=== PATIENT | female | born 1960 | race Caucasian/White ===

== ENCOUNTER 2018-07-16 23:55 | Observation (INO) ==
[2018-07-17] MEDS ORDERED: ASPIRIN CHEW 324 MG PO STA (00:09)
[2018-07-17] MEDS ORDERED: NITROGLYCERIN SL 0.4 MG/TAB TAB SL PRN ×2 (00:09→03:59)
--- NOTE | 2018-07-17 00:17 | Emergency Department Note ---
History of Present Illness General Chief complaint: Cardiac Assessment Stated complaint: CHEST PRESSURE INTO BACK History of Present Illness Maximum Pain Intensity: 2 This 58-year-old presents to the ER complaining of chest pain that radiates to her back Location: Mid chest Quality: Pressure Severity: Moderate Duration: 2 hours ago Timing: Started 2 hours ago Context: Symptoms persisted and patient came in Modifying factors: better with nothing; worse with nothing Patient has a history of high blood pressure and cholesterol. Patient is British speaking and the son is translating per their request. Patient denies prior heart disease. Patient denies exertional chest pain, abdominal pain, leg swelling, fevers, flulike illness. No prior heart testing. Patient does not smoke. No diabetes. Home Medications Home Medications Medication Instructions Recorded Confirmed Type atenolol 50 mg PO DAILY 07/17/18 07/17/18 History chlorthalidone 12.5 mg PO DAILY 07/17/18 07/17/18 History Allergies Allergy/AdvReac Type Severity Reaction Status Date / Time cinnamon Allergy Anaphylaxis Unverified 07/17/18 02:14 Past Med/Surg History Medical History High blood pressure Hyperlipidemia Social History Preferred Language: British Feels Safe at Home: Yes Smoking Status: Never smoker Review of Systems All systems reviewed & are unremarkable except as noted in HPI & below Physical Exam Vital Signs Vital Signs - 24 hr 07/16/18 23:59 07/17/18 00:20 07/17/18 00:34 Temperature 36.8 C Temperature Source Oral Sepsis Recent Fever Within 48 Hours No Sepsis New/Unexplained Change in Mental Status No Sepsis Action Taken by Nursing No Action Required Pulse Rate 73 70 Pulse Rate [Right Finger] 73 Pulse Rhythm Regular Pulse Rhythm [Right Finger] Regular Pulse Strength [Right Finger] Normal Respiratory Rate 16 16 16 Respiratory Effort / Characteristics Non-Labored Spontaneous Non-Labored Respiratory Depth Normal Normal Respiratory Pattern Regular Blood Pressure 161/82 H Blood Pressure [Right Arm] 124/80 Blood Pressure Mean 108 Blood Pressure Mean [Right Arm] 94 Blood Pressure Position [Right Arm] Lying Pulse Oximetry 99 96 99 Oxygen Delivery Method Room Air Room Air Room Air 07/17/18 01:11 07/17/18 02:28 07/17/18 03:00 Temperature Temperature Source Sepsis Recent Fever Within 48 Hours Sepsis New/Unexplained Change in Mental Status Sepsis Action Taken by Nursing Pulse Rate 66 Pulse Rate [Right Finger] 66 65 Pulse Rhythm Pulse Rhythm [Right Finger] Regular Regular Pulse Strength [Right Finger] Normal Normal Respiratory Rate 16 16 21 Respiratory Effort / Characteristics Non-Labored Non-Labored Respiratory Depth Normal Normal Respiratory Pattern Regular Regular Blood Pressure 138/86 Blood Pressure [Right Arm] 135/73 126/72 Blood Pressure Mean 103 Blood Pressure Mean [Right Arm] 93 90 Blood Pressure Position [Right Arm] Lying Pulse Oximetry 96 96 97 Oxygen Delivery Method Room Air Room Air Room Air VITALS: Vitals are noted on the nurse's note and reviewed by myself. Vital signs reviewed. GENERAL: Pleasant female, in no acute distress, nondiaphoretic, well-developed well-nourished. SKIN: The skin was without rashes, erythema, edema, or bruising. There is no tenting of the skin. Capillary reflex less than 2 seconds. HEAD: Normocephalic atraumatic. EARS: External auditory canals clear, tympanic membranes pearly peralta without erythema or effusion bilaterally. EYES: Pupils equal round and reactive to light and accommodation. Conjunctivae without injection, sclerae without icterus. Extraocular movements intact. NOSE: Patent, turbinates without inflammation or discharge. MOUTH: Mucous membranes moist. Pharynx without erythema or exudate. Uvula midline. Airway patent. Tongue does not deviate. NECK: Supple without nuchal rigidity. No lymphadenopathy. No thyromegaly. Cervical spine is nontender. No JVD. HEART: Regular rate and rhythm LUNGS: Clear to auscultation bilaterally without wheezes, rales or rhonchi. No retractions or accessory muscle use. ABDOMEN: Positive bowel sounds x 4. Normal tympanic percussion. Soft, nontender, without masses or organomegaly. Sánchez sign negative. No guarding or rebound tenderness. No CVA tenderness MUSCULOSKELETAL: No muscle atrophy, erythema, or edema noted. NEURO: Patient was alert and oriented to person place and time. Normal sensation to light and sharp touch. No focal neurological deficits. Course Administered Medications Ioversol (Optiray 320 125ml) 125 ml IV ONCE PRN PRN Reason: Interaction Checking Stop: 07/21/18 01:31 Last Admin: 07/17/18 01:32 Dose: 119 ml Documented by: [id number] Nitroglycerin (Nitrostat) 0.4 mg SL UD PRN PRN Reason: Chest Pain Stop: 08/16/18 00:08 Last Admin: 07/17/18 00:25 Dose: 0.4 mg Documented by: [id number] Discontinued Medications Aspirin (Aspirin) 324 mg PO NOW STA Stop: 07/17/18 00:10 Last Admin: 07/17/18 00:25 Dose: 324 mg Documented by: [id number] Medical Decision Making Medical Records Attestation: I reviewed the patient's medical records. Home Medications Current Medication List: was personally reviewed by me Laboratory Data Attestation: I reviewed the patient's lab results. Result diagrams: 07/17/18 00:16 07/17/18 00:16 Lab Results 07/17/18 07/17/18 07/17/18 Range/Units 00:16 00:16 00:16 WBC 10.93 H (4.8-10.8) K/uL RBC 4.60 (4.2-5.4) M/uL Hgb 13.9 (12.0-16.0) g/dL Hct 39.0 (37-47) % MCV 84.8 (80-100) fL MCH 30.2 (25-34) pg MCHC 35.6 (32-36) g/dL RDW Std Deviation 43.9 (36.4-46.3) fL RDW Coeff of Reynaldo 14.1 (11.5-14.5) % Plt Count 270 (130-400) K/uL MPV 9.4 (7.4-10.4) fL Neutrophils % (Manual) 33.9 % Lymphocytes % (Manual) 26.1 % Reactive Lymphs % (Man) 31.3 % Monocytes % (Manual) 7.8 % Eosinophils % (Manual) 0.9 % Neutrophils # (Manual) 3.71 (1.4-6.5) K/uL Total Absolute Neuts 3.71 (1.4-6.5) K/uL Lymphocytes # (Manual) 2.85 (1.2-3.4) K/uL Reactive Lymphs # 3.42 K/uL Total Abs Lymphocytes 6.27 H (1.2-3.4) K/uL Monocytes # (Manual) 0.85 H (0.11-0.59) K/uL Eosinophils # (Manual) 0.10 (0-0.5) K/uL Tear Drop Cells 1+ POC D-Dimer 231 (0-450) ng/mlFEU Sodium 138 (136-145) mmol/L Potassium 3.5 (3.5-5.1) mmol/L Chloride 103 (98-107) mmol/L Carbon Dioxide 31 (21-32) mmol/L Anion Gap 4.0 (3-11) BUN 24 H (7-18) mg/dl Creatinine 0.88 (0.6-1.2) mg/dl Est Cr Clr Drug Dosing Not Reportable Est GFR ( Amer) 82.8 Est GFR (Non-Af Amer) 71.4 BUN/Creatinine Ratio 27.6 H (10-20) Glucose 98 (70-99) mg/dl Calcium 8.8 (8.5-10.1) mg/dl Total Bilirubin 0.4 (0.2-1) mg/dl AST 33 (15-37) U/L ALT 51 (12-78) U/L Alkaline Phosphatase 60 (45-117) U/L POC Troponin I < 0.03 (0-0.045) ng/ml Troponin I < 0.015 (0-0.045) ng/ml Total Protein 7.5 (6.4-8.2) gm/dl Albumin 3.4 (3.4-5.0) gm/dl Globulin 4.1 H (2.5-4.0) gm/dl Albumin/Globulin Ratio 0.8 L (0.9-2) Lipase 188 (73-393) U/L Imaging Data Attestation: I personally reviewed and interpreted this imaging study as follows: MDM Narrative Prior records/ancillary studies reviewed. Triage Nursing notes reviewed. Additional history obtained from family. The patient's history was concerning for chest pain. Differential diagnosis: Etiologies such as cardiac ischemia, aortic dissection, pulmonary embolism, pneumonia, pneumothorax, musculoskeletal, infections, pericarditis, myocarditis, esophageal rupture, gastrointestinal, as well as others were entertained. Physical examination: As above. ER treatment provided: Aspirin, nitroglycerin Nitroglycerin relieved patient's chest pain but dropped her blood pressure. Repeat EKG is unchanged. First troponin is negative On reassessment the patient felt better. Diagnostic interpretation by me: The electrocardiogram was negative for pathologic change. Normal sinus, normal intervals, no acute ST-T wave changes, rate of 73. Impression normal sinus rhythm interpreted by myself Repeat EKG is unchanged I think arrhythmia is unlikely. EKG shows normal sinus rhythm with no interval abnormalities such as QT prolongation or WPW. There are no findings to suggest Brugada syndrome. Cardiac monitoring in the emergency department reveals no tachycardic or bradycardic dysrhythmia. Hypertrophic cardiomyopathy was considered but there are no clear historical elements pointing toward this. EKG is not suggestive. The QRS voltage is not extremely large and there are no suggestive Q waves. The labs revealed negative troponin and d-dimer Imaging studies: Chest x-ray with no acute consolidation, pneumothorax or free air per my interpretation HEART SCORE: Hx: high/mod/low suspicion: 1 ECG: ST depression/nonspecific changes/normal: 0 Age: Greater than 65/45-64/less than 45: 1 Risk factors: (Hypertension, hyperlipidemia, diabetes, coronary disease, tobacco use, cocaine use): 1 Troponin: Greater than 2 times normal limits/1-2 times normal limits/normal: 0 Total: 3 Consultation: A consultation was placed with the hospitalist. The case was discussed and diagnostics were reviewed. The patient was evaluated in the ER for further treatment. Exam and history seem consistent with chest pain with concerns for cardiac in etiology. Patient felt better after nitroglycerin but it did drop her blood pressure. EKG is unchanged. Medicine was consulted. Heart score is 3. First troponin is negative. Negative CTA. By the evaluation outlined above emergent etiologies such as aortic dissection, pulmonary embolism, pneumonia, pneumothorax, infections, pericarditis, myocarditis, gastrointestinal, as well as others were deemed relatively unlikely . The pt/family informed about the findings as listed above. All questions were answered and pleased with the treatment. Case reviewed with my attending The chart was completed utilizing [employer] Speech voice recognition software. Grammatical errors, random word insertions, pronoun errors, and incomplete sentences are an occassional consequence of this system due to software limitations, ambient noise, and hardware issues. Any formal questions or concerns about the content, text, or information contained within the body of this dictation should be directly addressed to the physician activity assistant for clarification. Impression & Plan Chest pain Discharge Plan Visit Data Chief Complaint: Cardiac Assessment Stated Complaint: CHEST PRESSURE INTO BACK ED Provider: Brenda Bolanos ED Midlevel Provider: Danielle Leo Discharge Problem: Chest pain Patient Disposition: Being Evaluated by Hospitalist Condition: Good Forms Stand Alone Forms: My [facility] Prescriptions Prescriptions: No Action atenolol 50 mg tablet 50 mg PO DAILY RF: 0 chlorthalidone 25 mg tablet 12.5 mg PO DAILY RF: 0 Referrals Referrals: Freda Reynoso MD [Primary Care Provider] - Discharge Problem: Chest pain Qualifiers: Chest pain type: unspecified Qualified Code(s): R07.9 - Chest pain, unspecified
[2018-07-17 00:28] LABS: Hemoglobin 13.9 g/dL (12.0-16.0); Mean Corpuscular Hgb Conc 35.6 g/dL (32-36); Mean Corpuscular Volume 84.8 fL (80-100); Mean Platelet Volume 9.4 fL (7.4-10.4); Platelet Count 270 K/uL (130-400); RDW Coefficient of Variation 14.1 % (11.5-14.5); RDW Standard Deviation 43.9 fL (36.4-46.3); White Blood Count 10.93 K/uL (4.8-10.8)
[2018-07-17 00:45] LABS: Alanine Aminotransferase 51 U/L (12-78); Albumin Level 3.4 gm/dl (3.4-5.0); Aspartate Aminotransferase 33 U/L (15-37); BUN Creatinine Ratio 27.6 (10-20); Blood Urea Nitrogen 24 mg/dl (7-18); Calcium 8.8 mg/dl (8.5-10.1); Carbon Dioxide 31 mmol/L (21-32); Chloride 103 mmol/L (98-107); Est GFR (African American) 82.8; Est GFR (Non-African American) 71.4; Glucose 98 mg/dl (70-99); Potassium 3.5 mmol/L (3.5-5.1); Sodium 138 mmol/L (136-145)
[2018-07-17 00:50] LABS: Albumin Globulin Ratio 0.8 (0.9-2); Alkaline Phosphatase 60 U/L (45-117); Bilirubin,Total 0.4 mg/dl (0.2-1); Globulin 4.1 gm/dl (2.5-4.0); Total Protein 7.5 gm/dl (6.4-8.2); Troponin I < 0.015 ng/ml (0-0.045)
[2018-07-17 01:23] LABS: ALC (manual) 6.27 K/uL (1.2-3.4); Eosinophils % (manual) 0.9 %; Lymphocytes # (manual) 2.85 K/uL (1.2-3.4); Lymphocytes % (manual) 26.1 %; Monocytes # (manual) 0.85 K/uL (0.11-0.59); Monocytes % (manual) 7.8 %; Neutrophils % (manual) 33.9 %; Reactive Lymphocytes # (manual) 3.42 K/uL; Tear Drop Cells 1+
[2018-07-17] MEDS ORDERED: OPTIRAY 320 125ml IV PRN (01:32)
--- NOTE | 2018-07-17 03:24 | History & Physical Report ---
Date of Service July 17, 2018 Assessment & Plan (1) Chest pain: 58yoF with hx of HTN, HLD presents with chest pain which started about 4 hours ago. Resolved with nitro. Chest pain: angina vs. ischemia -HD stable -EKG [address]-T wave changes Qtc 423 -Repeat EKG 30 mins later unchanged -Initial Troponin <0.015 -D-dimer normal -CTA chest: negative aside from 5mm RLL irregular nodule incidental finding -Trend troponin -Monitor on telemetry -Stress ECHO ordered -Cardiology consulted HTN -Continue home atenolol and chlorthalidone HTN -Not on any medications -Fasting lipid profile ordered 5mm RLL irregular nodule incidental finding -follow up outpt - repeat imaging recommended Dvt prop: SCDs, encourage ambulation - low risk Code: full Dispo: med/surg with telemetry (2) HTN (hypertension): (3) HLD (hyperlipidemia): History of Present Illness Chief Complaint: Chest Pain Primary Care Provider: Freda Casillas MD 58yoF with hx of HTN, HLD presents with chest pain which started about 4 hours ago. Had pressure like pain in the middle of her chest which was radiating to her back. Initially for about 2 hours it was mild then it got worse and she was also having difficulty breathing. Her mouth felt dry but she was not diaphoretic or light headed. Pain did not radiate down arms or up her neck. She denies any headache, nausea, vomiting, abdominal pain, dysuria. She has not had any previous episodes of similar chest pain. Of note: Pt is upper sorbian and does not speak Sinhala. Plant Attendant offered but she requested for her son to translate. ED course: received aspirin 324mg and nitro 0.4 SL x 1 which resolved her chest pain. She did not have any ischemic changes on EKG and had a normal troponin Surgical hx: none Social hx: never smoked, drank alcohol or used recreational drugs Fhx: mother has CAD but is 95 and healthy otherwise, father of lung cancer (smoked), has 5 siblings who are healthy Allergies Allergy/AdvReac Type Severity Reaction Status Date / Time cinnamon Allergy Anaphylaxis Unverified 07/17/18 02:14 Home Medications Home Medications Medication Instructions Recorded Confirmed Type atenolol 50 mg PO DAILY 07/17/18 07/17/18 History chlorthalidone 12.5 mg PO DAILY 07/17/18 07/17/18 History Past Med/Surg History Medical History High blood pressure Hyperlipidemia Social History Preferred Language: Malian Communication Ability: Effective Plant Attendant Required: Yes Beliefs That Will Affect Care: None Current Living Situation: Spouse and Family Other Information That Helps Us Care for You: No Feels Safe at Home: Yes Safety Concerns: Feels Safe At This Time Smoking Status: Never smoker Hx Alcohol Use: No Hx Substance Use: No Review of Systems Review of Systems: As per HPI Physical Exam Physical Exam: General: In NAD CV: RRR, no m/r/g, no JVD PULM: CTAB equal breath sounds bilaterally ABDOMEN: +BS, non-distended, non-tender to palpation in all quadrants LE: no calf TTP, no LE edema Results & Data Vital Signs (Past 12 Hours) Vital Signs Temp Pulse Pulse Resp BP BP Pulse Ox 07/17/18 03:00 66 21 138/86 97 07/17/18 02:28 65 16 126/72 96 07/17/18 01:11 66 16 135/73 96 07/17/18 00:34 73 16 124/80 99 07/17/18 00:20 70 16 96 07/16/18 23:59 36.8 C 73 16 161/82 H 99 Laboratory Results Abnormal lab results 07/17/18 07/17/18 Range/Units 00:16 00:16 WBC 10.93 H (4.8-10.8) K/uL Total Abs Lymphocytes 6.27 H (1.2-3.4) K/uL Monocytes # (Manual) 0.85 H (0.11-0.59) K/uL BUN 24 H (7-18) mg/dl BUN/Creatinine Ratio 27.6 H (10-20) Globulin 4.1 H (2.5-4.0) gm/dl Albumin/Globulin Ratio 0.8 L (0.9-2) Code Status & VTE Plan Code Status Full VTE Prophylaxis Plan VTE Prophylaxis will be ordered: Yes Supervising Physician Co-Signing Physician Notes Pt seen/examined in conjunction with resident MD Ajay Stevens. Orders and plan of admission formulated with resident. 58 y/o F Hx HTN, HLD presents with persistent central CP. Denies radiation, nausea/vomiting, diaphoresis. Admits to SOB. The pain lasted 4 hours and resolved with NTG provided in the ER. OE: Well-appearing, middle-aged F - no distress S1,2 R CTAB NT, ND No CCE No Deficits P: Serial trop followed by stress test - ASA Cont Atenolol chlorthalidone. Resident Activity Tracking Resident Involvement: Resident Care Provided Care Provided: Adult Hospital Medicine (1) Chest pain Chest pain type: unspecified Qualified Code(s): R07.9 - Chest pain, unspecified
[2018-07-17] MEDS ORDERED: ONDANSETRON INJ 2 MG/ML 2 ML VIAL IV PRN (03:59)
[2018-07-17] MEDS ORDERED: SODIUM CHLORIDE 0.9% 1000ML 1,000 ML IV SCH (03:59)
[2018-07-17] MEDS ORDERED: ACETAMINOPHEN 325 MG TAB PO PRN (03:59)
[2018-07-17 06:49] LABS: Chol HDL Ratio 3; Cholesterol 216 mg/dl (0-200); HDL Cholesterol 70 mg/dl; LDL Cholesterol Calculated 126 mg/dl; Triglycerides 99 mg/dl (0-150); Troponin I < 0.015 ng/ml (0-0.045); VLDL Cholesterol 20 mg/dl
--- NOTE | 2018-07-17 06:50 | CT Scan Report ---
CT ANGIOGRAPHY OF THE CHEST, ABDOMEN, AND PELVIS CLINICAL HISTORY: chest pain radiates to back COMPARISON STUDY: Chest radiograph July 17, 2018. TECHNIQUE: Before and following the IV administration of 119 mL of Optiray-320, helical axial images of the chest, abdomen and pelvis were obtained. Maximal intensity projections and sagittal and coron al reformats were viewed on an independent 3D workstation. IV contrast was administered without comp lication. Automated exposure control was utilized for the study. A dose lowering technique was util ized adhering to the principles of ALARA. CT DOSE: 338.11 mGy.cm FINDINGS: The caliber of the thoracic aorta is normal. There is no intramural hematoma or thoracic a ortic dissection. No pulmonary emboli are identified. The size of the heart is normal. There is no pe ricardial effusion. No pneumothorax or pleural effusion is noted. The central airways are patent. No consolidation is present. Note is made of a 6 mm solid right lower lobe nodule with possible adjacent groundglass opacity within the right lower lobe on image 166 of 251. A few tiny right middle lobe no dules measure up to 4 mm. Bony thorax is unremarkable. There are no suspicious osseous lesions. IMPRESSION: 1. No thoracic aortic dissection. 2. No acute intrathoracic findings. 3. 6 mm solid irregular right lower lobe nodule and a few small right middle lobe nodules. These may be inflammatory however is indeterminate and should be followed according to the attached recommendat ions. Please refer to below summary of Fleischner criteria recommendations for follow-up of incidental CT n odules (Rodo Todd, Guidelines for management of small pulmonary nodules detected on CT scans: A sta tement from the Fleischner Society, Radiology 237: [id number].) SOLID NODULES Solitary nodule size: <6 mm * low risk patients: no follow-up needed * high risk patients: optional CT at 12 months Solitary nodule size: 6-8 mm * low risk patients: follow-up at 6-12 months, then consider further follow-up at 18-24 months * high risk patients: initial follow-up CT at 6-12 months and then at 18-24 months if no change Solitary nodule size: >8 mm * either low or high risk patients - consider follow-up CT at 3 months, and/or CT-PET, and/or biopsy Multiple nodules size: <6 mm * low risk patients: no routine follow-up * high risk patients: optional CT at 12 months Multiple nodules size: 6-8 mm * low risk patients: follow-up at 3-6 months, then consider further follow-up at 18-24 months * high risk patients: follow-up at 3-6 months, then at 18-24 months if no change Multiple nodules size: >8 mm * low risk patients: follow-up at 3-6 months, then consider further follow-up at 18-24 months * high risk patients: follow-up at 3-6 months, then at 18-24 months if no change Note: newly detected indeterminate nodule in persons 35 years of age or older. * low risk patients: minimal or absent history of smoking and/or other known risk factors * high risk patients: history of smoking or of other known risk factors (e.g. first degree relative with lung cancer, or exposure to asbestos, radon, uranium) * if a nodule up to 8 mm is partly solid or is ground glass further follow-up is required after 24 m onths to exclude possible slow growing adenocarcinoma (SMITA) SUBSOLID NODULES Solitary pure ground-glass nodule * nodule size <6 mm - no CT follow-up required * nodule size >=6 mm - follow-up CT at 6-12 months, then every 2 years until 5 years Solitary part-solid nodule * nodule size <6 mm - no CT follow-up required * nodule size >=6 mm - follow-up CT at 3-6 months. If unchanged, and solid component remains <6 mm, then annual follow-up for 5 years Multiple subsolid nodules * nodule size <6 mm - follow-up CT at 3-6 months, consider further follow-up at 2 and 4 years if sta ble * nodule size >=6 mm - follow-up CT at 3-6 months, subsequent management based on the most suspiciou s nodule(s) Electronically signed by: Rui Rocha M.D. 07/17/2018 6:49 AM
--- NOTE | 2018-07-17 07:18 | XRay Report ---
XR chest 1V portable HISTORY: Atypical Chest Pain COMPARISON: None. FINDINGS: The lungs are clear. Cardiac silhouette is normal in size. No pleural effusions. No pneumot horax. IMPRESSION: No acute process. Electronically signed by: Bertrand Linares M.D. 07/17/2018 7:17 AM
[2018-07-17] MEDS ORDERED: ATENOLOL 50 MG TABLET PO SCH (09:00)
[2018-07-17] MEDS ORDERED: CHLORTHALIDONE 25 MG TAB PO SCH (09:00)
[2018-07-17 11:38] VITALS: BP 118/73; PULSE 56; TEMP 98.6; O2SAT 94
--- NOTE | 2018-07-17 13:03 | Cardiology Consultation ---
Date of Consultation July 17, 2018 Assessment & Plan (1) Chest pain: Unclear etiology. Possibly gastrointestinal. Possibly musculoskeletal. She does not have any evidence of cardiac ischemia. Despite a prolonged episode of discomfort a cardiac biomarkers were normal. She also performed quite well on her exercise treadmill test without evidence of inducible ischemia at a good workload. I would recommend continued cardiac risk factor modification according to published guidelines. No other testing or intervention required at this time. (2) Mitral regurgitation: She has an element of mitral regurgitation which can be followed over time. Good control of blood pressure and monitoring for symptoms over time is advisable. No other evaluation require currently. History of Present Illness Reason for Consultation: Chest pain Requesting Physician: Dawson Attending Physician: Rigo Osman History of Present Illness Patient is a 58-year-old woman without a known history of cardiac disease who began experience symptoms of precordial chest pressure and back discomfort yesterday afternoon. Patient described this as a pressure-type sensation all across the precordium. There was some discomfort in the back around the left scapula as well. With the not appear to be associated with significant breathing difficulty. The symptoms were not pleuritic in nature. The symptoms began at rest and lasted for approximately 2 hours. Patient's did apply some limits and massage the area with some minor improvement. However, the symptoms persisted until the patient presented to [facility] f or evaluation. She appears to have been administered nitroglycerin with eventual relief of her symptoms. Initial biomarkers and EKG were normal. She was admitted for observation overnight. The patient's symptoms have not returned. She cannot recall similar symptoms in the past. She does have occasional back and chest discomfort which is fleeting in nature. She is an active individual who is accustomed to moderate intensity work at her occupation. She has not report limitations such as breathing difficulty or chest discomfort associated with that activity. She did not have dizziness or lightheadedness. She cannot recall a syncopal episode. She has not been aware of any palpitations. She denies any swelling in her lower extremities. 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 She has some indigestion on occasion with certain foods. She appears to have an allergy to cinnamon which causes some swelling in her mouth. Physical Exam Physical Exam: She is alert and oriented x3. Mood affect appear normal. She answered all questions appropriately. HEENT: Sclerae are anicteric. Pupils are equal and reactive to light and accommodation. Extraocular movements were intact. Neuro: Cranial nerves intact Neck: Examination of the submandibular region did not reveal any significant lymphadenopathy. Carotids are palpable bilaterally and free of bruits on auscultation. There was no evidence of jugular venous distention. The thyroid was not enlarged. Lungs: Lungs are clear to auscultation bilaterally. There are no rales wheezes or rhonchi. She has normal respiratory effort without use of accessory muscles. There is normal pulmonary excursion. Cardiac: The rhythm was regular. S1 and S2 were normal. There are no murmurs on examination. The PMI was not markedly displaced on palpation. Abdomen: The abdomen was soft and nontender. Extremities: Patient has bilateral radial pulses that are equal in intensity. There is no evidence cyanosis or clubbing. There was no evidence of significant peripheral edema bilaterally. Skin: There are no rashes noted on examination today. Results & Data Vital Signs (Past 12 Hours) Vital Signs Temp Pulse Pulse Resp BP BP Pulse Ox 07/17/18 11:38 37.0 C 56 L 16 118/73 94 07/17/18 07:31 36.6 C 57 L 16 120/66 98 07/17/18 03:55 36.9 C 65 16 148/82 H 97 07/17/18 03:42 62 16 131/75 98 07/17/18 03:00 66 21 138/86 97 07/17/18 02:28 65 16 126/72 96 07/17/18 01:11 66 16 135/73 96 Laboratory Results Abnormal Lab Results 07/17/18 07/17/18 07/17/18 00:16 00:16 00:16 WBC 10.93 H RBC 4.60 Hgb 13.9 Hct 39.0 MCV 84.8 MCH 30.2 MCHC 35.6 RDW Std Deviation 43.9 RDW Coeff of Reynaldo 14.1 Plt Count 270 MPV 9.4 Neutrophils % (Manual) 33.9 Lymphocytes % (Manual) 26.1 Reactive Lymphs % (Man) 31.3 Monocytes % (Manual) 7.8 Eosinophils % (Manual) 0.9 Neutrophils # (Manual) 3.71 Total Absolute Neuts 3.71 Lymphocytes # (Manual) 2.85 Reactive Lymphs # 3.42 Total Abs Lymphocytes 6.27 H Monocytes # (Manual) 0.85 H Eosinophils # (Manual) 0.10 Blood Smear Review Tear Drop Cells 1+ POC D-Dimer 231 Sodium 138 Potassium 3.5 Chloride 103 Carbon Dioxide 31 Anion Gap 4.0 BUN 24 H Creatinine 0.88 Est Cr Clr Drug Dosing Not Reportable Est GFR ( Amer) 82.8 Est GFR (Non-Af Amer) 71.4 BUN/Creatinine Ratio 27.6 H Glucose 98 Calcium 8.8 Total Bilirubin 0.4 AST 33 ALT 51 Alkaline Phosphatase 60 POC Troponin I < 0.03 Troponin I < 0.015 Total Protein 7.5 Albumin 3.4 Globulin 4.1 H Albumin/Globulin Ratio 0.8 L Triglycerides Cholesterol LDL Cholesterol, Calc VLDL Cholesterol, Calc HDL Cholesterol Cholesterol/HDL Ratio Lipase 188 07/17/18 07/17/18 05:55 12:07 WBC RBC Hgb Hct MCV MCH MCHC RDW Std Deviation RDW Coeff of Reynaldo Plt Count MPV Neutrophils % (Manual) Lymphocytes % (Manual) Reactive Lymphs % (Man) Monocytes % (Manual) Eosinophils % (Manual) Neutrophils # (Manual) Total Absolute Neuts Lymphocytes # (Manual) Reactive Lymphs # Total Abs Lymphocytes Monocytes # (Manual) Eosinophils # (Manual) Blood Smear Review Tear Drop Cells POC D-Dimer Sodium Potassium Chloride Carbon Dioxide Anion Gap BUN Creatinine Est Cr Clr Drug Dosing Est GFR ( Amer) Est GFR (Non-Af Amer) BUN/Creatinine Ratio Glucose Calcium Total Bilirubin AST ALT Alkaline Phosphatase POC Troponin I Troponin I < 0.015 < 0.015 Total Protein Albumin Globulin Albumin/Globulin Ratio Triglycerides 99 Cholesterol 216 H LDL Cholesterol, Calc 126 VLDL Cholesterol, Calc 20 HDL Cholesterol 70 Cholesterol/HDL Ratio 3 Lipase Diagnostic Findings Chest x-ray at the time admission was unremarkable. No acute cardiopulmonary process Chest CT at the time of admission did not reveal any evidence of aortic disse ction or intrapulmonary process with the exception of a pulmonary nodule. Exercise echocardiogram did not reveal any evidence of inducible ischemia. She had an element of mitral regurgitation which appeared to be moderate. ECG Additional Comments: Normal sinus rhythm. Normal EKG (1) Chest pain Chest pain type: unspecified Qualified Code(s): R07.9 - Chest pain, unspecified
--- OUTSIDE RECORDS SUMMARY | 2018-07-20 21:47 | External Medical Summary | Continuity of Care Document ---
:1960 Author Name Sharmin Xiong, Provider Address Unavailable Unavailable , Care Team Providers Name Role Phone Wilda Xiong, [email or web address] PCP, UNKNOWN Unavailable Unavailable Unavailable Unavailable Unavailable Problems Hypertension (401.9) (I10) Flu vaccine need (V04.81) (Z23) History of Lumbago with sciatica, left side (724.3) (M54.42) Status: Resolved Allergies and Adverse Reactions No Known Drug Allergies (Allergy) Medications Chlorthalidone 25 MG Oral Tablet; TAKE 1/2 TABLET TRENT Y. Inga Astudillo Start: 18-Mar-2018 Quantity: 45 Refills: 3 Atenolol 50 MG Oral Tablet; TAKE 1 TABLET DAILY. Inga Martinez Start: 18-Mar-2018 Quantity: 90 Refills: 3 Procedures Procedures not documented Immunizations Tdap (Adacel) On: 14-Mar-2017 Flublok Quadrivalent 0.5 ML Intramuscular Solution Pre filled Syringe On: 18-Mar-2018 16:37 Lot #: [id number], SANOFI PASTEUR Family History Father Family history of hypertension (V17.49) (Z82.49) Status: Act julita Plan of Treatment Planned Encounters Appointment; Freda Astudillo M.D. Start: Aug-2018 11:00 Request Planned Observations Planned Goals not documented Results Troponin I (Pending) Laboratory: [facility] Laboratory [address] [facility] [address] tel: 17-Jul-2018 5:55 TROPONIN (cTnI) < 0.015 ng/ml Range: 0- 0.045 ng/ml Lipid Profile - Fasting Laboratory: [facility] Laboratory [address] (Pending) [address] [facility] [address] tel: 17-Jul-2018 5:55 TRIGLYCERIDES 99 mg/dl Range: 0-150 mg/ dl Comments: TRIGLYCERI TANYA Normal triglyceride: <150 mg/dl Borderline High: 150-199 mg/dl High: 200-499 mg/dl Very High: > or = 500 mg/dl CHOLESTEROL 216 mg/dl (above high Range: 0-200 mg/dl threshold) Comments: TOTAL CHOL ESTEROL Desirable: <200 mg/dl Borderline High: 200-239 mg/dl High Cholesterol: > or = 240 mg/dl LDL CHOLESTEROL CALCULATED 126 Range: m g/dl mg/dl VERY LOW DENSITY LIPOPROT CALC 20 Range: mg/dl mg/dl HDL CHOLESTEROL 70 mg/dl Range: mg/dl Comments: Unable to flag abnormal result. Please refer tointerpretive data below:HDL CHOLESTEROL Low HDL: <40 mg/dl Normal: 40-60 mg/dl Desirable: >60 mg/dl CHOLESTEROL/HDL RATIO 3 Chest Combo Angio Laboratory: [facility] Diagnostic Dissection (Pending) Imaging [address] [facility] 17-Jul-2018 6:23 Chest Combo Angio Dissection [facility], [place] [phone] CT Scan Report Patient: ABDOUL MATHIS Admit Date: 07/17/18 MR#: [id number] Address1: [address] [place] [address] [address] Acct ID:[id number] Address2: Date: 1960 [facility] Zip: [place] [address] Age: 58 Location: Sex: F Room/Bed: [facility] Att Phy: Umer See M.D. Diagnosis: CHEST PAIN Lea Phy: RV. Astudillo MD Servi ce Date: 07/17/18 Fam Phy: Interpreting Phy: Rui greer MD Admit Phy: Umer See M.D. Ordering Phy: Danielle Leo PA-C cc: CT ANGIOGRAPHY OF THE CHEST, ABDOMEN, AND PELVIS CLINICAL HISTORY: chest pain radiates to back COMPARISON STUDY: Chest radiograph July 17, 2018. TECHNIQUE: Before and following the IV administration of 119 mL of Optiray-320, helical axial images of the chest, abdomen and pelvis were obtained. Maximal intensity projections and sagittal and coronal reformats were viewed on an independent 3D workstation. IV contrast was administered without complication. Automated exposure control was utilized for the study. A dose lowering technique was utilized adhering to the principles of ALARA. CT DOSE: 338.11 mGy.cm FINDINGS: The caliber of the thoracic aorta is normal. There is no intramural hematoma or thoracicaortic dissection. No pulmonary emboli are identified. The size of the heart is normal. There is no pericardial effusion. No pneumothorax or pleural effusion is noted. The central airways are patent. No consolidation is present. Note is made of a 6 mm solid right lower lobe nodule with possible adjacent groundglass opacity within the right lower lobe on image 166 of 251. A few tiny right middle lobe nodules measure up to 4 mm. Bony thorax is unremarkable. There are no suspicious osseouslesions. IMPRESSION: 1. No thoracic aortic dissection. 2. No acute intrathoracic findings. 3. 6 mm solid irregular right lower lobe nodule and a few small right middle lobe nodules. These may be inflammatory however is indeterminate and should be followed according to the attached recommendations. Please refer to below summary of Fleischner criteria recommendations for follow-up of incidental CTnodules (Rodo Todd, Guidelines for management of small pulmonary nodules detected on CT scans: A statement from the Fleischner Society, Radiology 237: [phone].) SOLID NODULES Solitary nodule size: <6 mm * low risk patients: no follow-up needed * high risk patients: optional CT at 12 months Solitary nodule size: 6-8 mm * low risk patients: follow-up at 6-12 months, then consider further follow-up at 18-24 months * high risk patients: initial follow-up CT at 6-12 months and then at 18-24 months if no change Solitary nodule size: >8 mm * either low or high risk patients - consider follow-up CT at 3 months, and/or CT-PET, and/or biopsy Multiple nodules size: <6 mm * low risk patients: no routine follow-up * high risk patients: optional CT at 12 months Multiple nodules size: 6-8 mm * low risk patients: follow-up at 3-6 months, then consider further follow-up at 18-24 months * high risk patients: follow-up at 3-6 months, then at 18-24 months if no change Multiple nodules size: >8 mm * low risk patients: follow-up at 3-6 months, then consider further follow-up at 18-24 months * high risk patients: follow-up at 3-6 months, then at 18-24 months if no change Note: newly detected indeterminate nodule in persons 35 years of age or older. * low risk patients: minimal or absent history of smoking and/or other known risk factors * high risk patients: history of smoking or of other known risk factors (e.g. first degree relative with lung cancer, or exposure to asbestos, radon, uranium) * if a nodule up to 8 mm is partly solid or is ground glass further follow-up is required after 24months to exclude possible slow growing adenocarcinoma (SMITA) SUBSOLID NODULES Solitary pure ground-glass nodule * nodule size <6 mm - no CT follow-up required * nodule size >=6 mm - follow-up CT at 6-12 months, then every 2 years until 5 years Solitary part-solid nodule * nodule size <6 mm - no CT follow-up required * nodule size >=6 mm - follow-up CT at 3-6 months. If unchanged, and solid component remains <6 mm, then annual follow-up for 5 years Multiple subsolid nodules * nodule size <6 mm - follow-up CT at 3-6 months, consider further follow-up at 2 and 4 years if stable * nodule size >=6 mm - follow-up CT at 3-6 months, subsequent management based on the most suspicious nodule(s) Electronically signed by: Rui Rocha M.D. 07/17/2018 6:49 AM Dictated: 07/17/18 0623 Transcribed: 07/17/18 0632 X-Ray Chest 1 View Laboratory: [facility] Diagnostic Portable (Pending) Imaging [address] [facility] [place] 17-Jul-2018 7:17 X-Ray Chest 1 VW Portable (CXR1P) [facility], [place] [phone] XRay Report Patient: ABDOUL MATHIS Admit Date: 07/17/18 MR#: [id number] Address1: [address] [facility] [address] [address] Acct ID:[id number] Address2: Date: 1960 [facility] Zip[facility] [place] [address] Age: 58 Location: Sex: F Room/Bed: N282-2 Att Phy: Umer See M.D. Diagnosis: CHEST PAIN Lea Phy: RV. Astudillo MD Servi ce Date: 07/17/18 Fam Phy: Interpreting Phy: Bertrand villa MD Admit Phy: Umer See M.D. Ordering Phy: Danielle Leo PA-C cc: XR chest 1V portable HISTORY: Atypical Chest Pain COMPARISON: None. FINDINGS: The lungs are clear. Cardiac silhouette is normal in size. No pleural effusions. No pneumothorax. IMPRESSION: No acute process. Electronically signed by: Bertrand Linares M.D. 07/17/2018 7:17 AM Dictated: 07/17/18716 Transcribed: 07/17/18716 CBC With DIFF (Pending) Laboratory: [facility] Laboratory [address] [facility] [place] [place]. [facility] [address] tel: 17-Jul-2018 0:16 WBC 10.93 K/uL (above high Range: 4.8-1 0.8 K/uL threshold) RBC 4.60 {M/uL} Range: 4.2-5.4 M/uL HEMOGLOBIN 13.9 g/dL Range: 12.0-16.0 g /dL HEMATOCRIT 39.0 % Range: 37-47 % MCV 84.8 fL Range: 80-100 fL MCH 30.2 pg Range: 25-34 pg MEAN CORPUSCULAR HGB CONC 35.6 Range: 3 2-36 g/dL g/dL RED CELL DISTRIBUTION WIDTH SD Range: 3 6.4-46.3 fL 43.9 fL RED CELL DISTRIBUTION WIDTH CV Range: 1 1.5-14.5 % 14.1 % PLATELET COUNT 270 K/uL Range: 130-400 K/uL MEAN PLATELET VOLUME 9.4 fL Range: 7.4- 10.4 fL ABSOLUTE NEUTROPH COUNT MANUAL Range: 1 .4-6.5 K/uL 3.71 K/uL ABSOLUTE LYMPHOCYTE COUNT 6.27 Range: 1 .2-3.4 K/uL K/uL (above high threshold) Comments: Ab solute lymphocytosis in patient >50 years old. Ifpersistent, consider evaluation for CLL (flow cytometry). NEUTROPHILS % 33.9 % Range: % LYMPHOCYTE % 26.1 % Range: % VARIANT LYMPHOCYTE % 31.3 % Range: % MONOCYTE % 7.8 % Range: % EOSINOPHIL % 0.9 % Range: % NEUT ABS # MAN 3.71 K/uL Range: 1.4-6.5 K/uL LYMPH ABS # 2.85 K/uL Range: 1.2-3.4 K/ uL VARIANT LYM ABS # 3.42 K/uL Range: K/uL MONO ABS # MAN 0.85 K/uL (above Range: 0.11-0.59 K/uL high threshold) EOS ABS # MAN 0.10 K/uL Range: 0-0.5 K/ uL TEAR DROP CELLS 1+ SLIDE REVIEW (Pending) Laboratory: [facility] Laboratory [address] [employer] [facility] [address] tel: 17-Jul-2018 0:16 SLIDE REVIEW Comments: Laboratory requested review of a peripheral blood sme arshows a lymphocytosis with a n absolute lymphocyte count of6.3. The lymphocy frank present are generall y variable inappearanc e with moderate amounts of cytoplasm and quiteoften cytop lasmic granules (large gran ular lymphocytes).The nuc lear membranes and chroma tin are not markedlyatypical .The morphologic findings are in keeping with a reactivelymphocytosi s. According to clinica l notes, this patientis being seen in the E.R. for chest p ain. The findingscould repres ent "transient stress lymphocytosis" which usually resolves in a few da ys.If this patient's lymph ocytosis does not resolve in aclinically appropri ate manner or if the pat ient has otherworrisome findi ngs (i.e. significant lymphade nopathy) thenadditional follo w-up is suggested.Chirag esquivel M.D. Troponin I (Pending) Laboratory: [facility] Laboratory [address] [facility] [address] tel: 17-Jul-2018 12:07 TROPONIN (cTnI) < 0.015 ng/ml Range: 0- 0.045 ng/ml Encounters Appointment; Freda Astudillo M.D. 26-Dec-201 8 16:00 Encounter Diagnosis: Problem not documented Appointment; [id number], Nurse 18-Mar-2018 15:30 Encounter Diagnosis: Problem not documented Appointment; Freda Astudillo M.D. 9 11:00 Encounter Diagnosis: Problem not documented
--- NOTE | 2018-07-23 09:42 | Discharge Summary ---
Date of Service July 17, 2018 Admission HPI Per Admitting Provider 58yoF with hx of HTN, HLD presents with chest pain which started about 4 hours ago. Had pressure like pain in the middle of her chest which was radiating to her back. Initially for about 2 hours it was mild then it got worse and she was also having difficulty breathing. Her mouth felt dry but she was not diaphoretic or light headed. Pain did not radiate down arms or up her neck. She denies any headache, nausea, vomiting, abdominal pain, dysuria. She has not had any previous episodes of similar chest pain. Of note: Pt is nauruan and does not speak Iraqi. Optical Scientist offered but she requested for her son to translate. ED course: received aspirin 324mg and nitro 0.4 SL x 1 which resolved her chest pain. She did not have any ischemic changes on EKG and had a normal troponin Surgical hx: none Social hx: never smoked, drank alcohol or used recreational drugs Fhx: mother has CAD but is 95 and healthy otherwise, father of lung cancer (smoked), has 5 siblings who are healthy Principal Diagnosis chest pain Discharge Exam Constitutional WD/WN, vitals as above Eyes PERRL, conjunctivae normal, anicteric sclerae ENMT external ear and nose normal, oropharynx normal Neck trachea midline, no thyromegaly Respiratory normal respiratory effort, lungs clear to auscultation Cardiovascular RRR, no murmur, no edema Gastrointestinal (Abdomen) normal bowel sounds, soft, nontender, no hepatosplenomegaly Neurologic PERRL, EOMI, accommodation nl, no face palsy, no dysarthria Psychiatric A+Ox3, euthymic affect Lymphatic no cervical or axillary lymphadenopathy Discharge Data Allergies Allergy/AdvReac Type Severity Reaction Status Date / Time cinnamon Allergy Anaphylaxis Unverified 07/17/18 02:14 Consultations 07/17/18 02:30 ED Decision to Admit Stat 07/17/18 03:59 Consult Cardiology Routine Ordered Studies 07/17/18 00:50 CT angio chest dissec wo/w con Urgent Hospital Course (1) Chest pain: 1) Chest pain: 58yoF with hx of HTN, HLD presents with chest pain which started about 4 hours ago. Resolved with nitro. Chest pain: angina vs. ischemia -HD stable -EKG [address]-T wave changes Qtc 423 -Repeat EKG 30 mins later unchanged -Initial Troponin <0.015 -D-dimer normal -CTA chest: negative aside from 5mm RLL irregular nodule incidental finding -Trend troponin -Monitor on telemetry -Stress ECHO ordered -Cardiology consulted Rich input: Possibly gastrointestinal. Possibly musculoskeletal. She does not have any evidence of cardiac ischemia. Despite a prolonged episode of discomfort a cardiac biomarkers were normal. She also performed quite well on her exercise treadmill test without evidence of inducible ischemia at a good workload. I would recommend continued cardiac risk factor modification according to published guidelines. No other testing or intervention required at this time. She does not have enough risk to warrant statin or ASA. Will defer further management to PCP. HTN -Continue home atenolol and chlorthalidone HTN -Not on any medications -Fasting lipid profile ordered 5mm RLL irregular nodule incidental finding -follow up outpt - repeat imaging recommended Dvt prop: SCDs, encourage ambulation - low risk Code: full Dispo: med/surg with telemetry (2) HTN (hypertension): (3) HLD (hyperlipidemia): Total Time Total Time Spent Total Time Spent (In Minutes): 31 Total Time Includes: Examination of the Patient, Discharge Planning and Medi cation Reconciliation Discharge Plan Discharge Items Patient Disposition: Home - Self-Care Reason For Visit: CHEST PAIN Discharge Diagnosis: Chest Pain Condition: Good Discharge Goals: Decrease discomfort Activity: Resume your previous activity Non-emergency contact: Primary Care Provider Call non-emergency contact if: you have any medication questions Follow-up/Referrals: Freda Reynoso MD [Primary Care Provider] - 07/22/18 1:00 pm (Please, follow up at Dr. Astudillo's office with her stylist assistant, Cielo Guerrier PA-C, on FridayJuly 22 at 1:00 pm. *If you need to change this appointment, call their office at [phone].) Diet: Heart Healthy Addtl Provider Instructions: Followup with PCP in 1 week. You had a stress test which was negative. Prescriptions: Continued atenolol 50 mg tablet 50 mg PO DAILY RF: 0 chlorthalidone 25 mg tablet 12.5 mg PO DAILY RF: 0 Stand-Alone Forms: [facility] Discharge Orders: Discharge Order (Routine); Ordered 07/17/18 Ordered By: Rigo Osman Admission Data Admit Date/Time: 07/17/18 03:20 Attending Provider: Rigo Osman Admit Provider: Umer See Primary Care Provider: Freda Reynoso V. Other Providers: Umer See ; Jaret Boyd Service: Telemetry Medical Other Interventions: Discharge Summary Assessment (RN) Last Done: 07/17/18 14:30 DC Date/Time DO NOT enter until pt leaves facility: 07/17/18 14:42
== END 2018-07-17 14:42 | disposition home or self-care (01) ==
LOC: 2N 23:55 → ED 23:55 → SUATTDRO 07-17 03:20 → 2N 07-17 03:42
DX: Z79.899 Other long term (current) drug therapy; E78.5 Hyperlipidemia, unspecified; E78.00 Pure hypercholesterolemia, unspecified; R07.9 Chest pain, unspecified; I10 Essential (primary) hypertension; I34.0 Nonrheumatic mitral (valve) insufficiency